=== PATIENT | male | born 1995 | race Caucasian/White ===

== ENCOUNTER 2017-01-26 20:11 | Emergency (ER) | payer BC ==
--- NOTE | 2017-01-26 22:38 | RAD ---
FOUR VIEWS CERVICAL SPINE 01/26/17 HISTORY: Right arm numbness and tingling 30 minutes prior to arrival. FINDINGS: Dorsal column stimulator leads overlie the cervical spine with tips of each lead at the level of the C3 vertebral body. C1 to the cervicothoracic junction is seen on the lateral view. No fracture or s ubluxation is seen. There is mild left convexed curvature of the upper thoracic spine. Tip of the od ontoid is not well seen on the odontoid view but has a normal appearance on lateral projection. Prev ertebral soft tissues are within normal limits. IMPRESSION: No acute findings involving the cervical spine. POS: [facility]
== END 2017-01-26 22:17 | disposition home or self-care (01) ==
LOC: ERS 20:11
DX: T85.9XXA Unspecified complication of internal prosthetic device, implant and graft, initial encounter (principal); R20.0 Anesthesia of skin; K21.9 Gastro-esophageal reflux disease without esophagitis; F41.9 Anxiety disorder, unspecified; F17.210 Nicotine dependence, cigarettes, uncomplicated
CPT/HCPCS: 72040; 93005